=== PATIENT | female | born 1965 | race African-American/Black ===

== ENCOUNTER 2021-08-18 11:40 | Inpatient (IN) | payer OTHER ==
[2021-08-18 13:08] VITALS: BMI 32.8
[2021-08-18] MEDS ORDERED: MAGNESIUM HYDROX 2400MG/30ML ORAL SUSPENSION 30 ML CUP PO PRN (14:04)
[2021-08-18] MEDS ORDERED: BISMUTH SUBSALICYLATE 524 MG/30 ML PO PRN (14:04)
[2021-08-18] MEDS ORDERED: DICYCLOMINE HCL 10 MG CAPSULE PO PRN (14:04)
[2021-08-18] MEDS ORDERED: MAG HYDROX/AL HYDROX/SIMETH 30 ML UNIT-DOSE CUP PO PRN (14:04)
[2021-08-18] MEDS ORDERED: IBUPROFEN 400 MG TABLET (FP) PO PRN (14:04)
[2021-08-18] MEDS ORDERED: LOPERAMIDE HCL 2 MG CAPSULE PO PRN (14:04)
[2021-08-18] MEDS ORDERED: MAGNESIUM CITRATE 300 ML BOTTLE PO PRN (14:04)
[2021-08-18] MEDS ORDERED: ACETAMINOPHEN 325 MG TABLET (FP) PO PRN ×2 (14:04)
[2021-08-18] MEDS ORDERED: NALOXONE HCL 0.4 MG/ML VIAL IM PRN (14:04)
[2021-08-18] MEDS ORDERED: IBUPROFEN 600 MG TABLET (FP) PO PRN (14:04)
[2021-08-18] MEDS ORDERED: methaDONE HCL 10 MG TABLET (FOR DETOX USE ONLY) PO ONE (14:04)
[2021-08-18] MEDS: ALBUTEROL SO4 HFA INHALER IH SCH ×3 (15:45→22:21)
[2021-08-18] MEDS: INSULIN SLIDING SCALE (NOVOLOG) 1 VIAL SQ SCH (17:29)
[2021-08-18] MEDS: metFORMIN HCL 500 MG TABLET (FP) PO SCH (17:30)
[2021-08-18] MEDS: THIAMINE HCL 100 MG TABLET (FP) PO SCH (22:21)
[2021-08-18] MEDS: MELATONIN 5 MG TABLETS PO SCH (22:21)
[2021-08-18] MEDS: METHOCARBAMOL 500 MG TABLET PO PRN (22:21)
[2021-08-19] MEDS: ALBUTEROL SO4 HFA INHALER IH SCH ×6 (02:20→22:07)
[2021-08-19] MEDS ORDERED: INSULIN SLIDING SCALE (NOVOLOG) 1 VIAL SQ ONE (06:25)
[2021-08-19] MEDS: metFORMIN HCL 500 MG TABLET (FP) PO SCH ×2 (06:26→17:37)
[2021-08-19] MEDS: INSULIN SLIDING SCALE (NOVOLOG) 1 VIAL SQ SCH ×3 (06:26→17:41)
[2021-08-19] MEDS ORDERED: methaDONE HCL 10 MG TABLET (FOR DETOX USE ONLY) ONE (09:41)
[2021-08-19] MEDS: NICOTINE 7 MG/24 HOURS TOPICAL PATCH TD SCH (10:28)
[2021-08-19] MEDS: PRENATAL VITAMINS W/ FOLIC ACID TABLET (FP) PO SCH (10:30)
[2021-08-19] MEDS: cloNIDine HCL 0.1 MG TABLET PO PRN ×3 (10:30→22:06)
[2021-08-19] MEDS: METHOCARBAMOL 500 MG TABLET PO PRN (10:30)
[2021-08-19 11:55] LABS: HEMATOCRIT 37.5 % (32.4-45.2); HEMOGLOBIN 12.9 GM/dL (10.7-15.3); MCH 32.1 pg (25.7-33.7); MCHC 34.3 g/dl (32.0-36.0); MEAN CELL VOLUME 93.7 fl (80-96); MEAN PLT VOLUME 9.7 fl (7.5-11.1); PLATELET COUNT 182 10^3/uL (134-434); RBC 4.01 M/mm3 (3.60-5.2); RDW 13.5 % (11.6-15.6); WHITE BLOOD COUNT 6.4 K/mm3 (4.0-10.0)
[2021-08-19 12:18] LABS: CALCIUM 8.8 mg/dL (8.5-10.1)
[2021-08-19 12:19] LABS: ALBUMIN 3.6 g/dl (3.4-5.0); BILIRUBIN,TOTAL 0.3 mg/dL (0.2-1)
[2021-08-19 12:21] LABS: TOT PROT 6.5 g/dl (6.4-8.2)
[2021-08-19 12:22] LABS: CREATININE 1.1 mg/dL (0.55-1.3)
[2021-08-19] MEDS ORDERED: INSULIN SLIDING SCALE (NOVOLOG) 1 VIAL SQ SCH (16:30)
[2021-08-19] MEDS: NICOTINE 10 MG CARTRIDGE (INHALER) IH PRN (19:17)
[2021-08-19] MEDS: MELATONIN 5 MG TABLETS PO SCH (22:06)
[2021-08-19] MEDS: THIAMINE HCL 100 MG TABLET (FP) PO SCH (22:06)
[2021-08-19] MEDS: traZODone HCL 50 MG TABLET (FP) PO SCH (22:06)
[2021-08-20] MEDS: ALBUTEROL SO4 HFA INHALER IH SCH ×6 (02:45→22:15)
[2021-08-20] MEDS: cloNIDine HCL 0.1 MG TABLET PO PRN (06:09)
[2021-08-20] MEDS: metFORMIN HCL 500 MG TABLET (FP) PO SCH ×2 (06:10→18:31)
[2021-08-20] MEDS: INSULIN SLIDING SCALE (NOVOLOG) 1 VIAL SQ SCH ×3 (06:10→18:31)
[2021-08-20] MEDS ORDERED: methaDONE HCL 10 MG TABLET (FOR DETOX USE ONLY) PO ONE (10:00)
[2021-08-20] MEDS: PRENATAL VITAMINS W/ FOLIC ACID TABLET (FP) PO SCH (10:22)
[2021-08-20] MEDS: NICOTINE 7 MG/24 HOURS TOPICAL PATCH TD SCH (10:22)
[2021-08-20] MEDS ORDERED: ONDANSETRON *ODT* 4 MG TABLET SL ONE (10:56)
[2021-08-20] MEDS: NICOTINE 10 MG CARTRIDGE (INHALER) IH PRN (20:59)
[2021-08-20] MEDS: THIAMINE HCL 100 MG TABLET (FP) PO SCH (22:15)
[2021-08-20] MEDS: traZODone HCL 50 MG TABLET (FP) PO SCH (22:15)
[2021-08-20] MEDS: MELATONIN 5 MG TABLETS PO SCH (22:15)
[2021-08-21] MEDS: ALBUTEROL SO4 HFA INHALER IH SCH ×6 (02:45→22:39)
[2021-08-21] MEDS: metFORMIN HCL 500 MG TABLET (FP) PO SCH ×2 (06:00→18:19)
[2021-08-21] MEDS: INSULIN SLIDING SCALE (NOVOLOG) 1 VIAL SQ SCH ×5 (06:01→18:25)
[2021-08-21] MEDS ORDERED: methaDONE HCL 10 MG TABLET (FOR DETOX USE ONLY) ONE (09:28)
[2021-08-21] MEDS: PRENATAL VITAMINS W/ FOLIC ACID TABLET (FP) PO SCH (10:19)
[2021-08-21] MEDS: NICOTINE 7 MG/24 HOURS TOPICAL PATCH TD SCH (10:19)
[2021-08-21] MEDS: CLOTRIMAZOLE 1% CREAM TP SCH ×2 (14:53→22:41)
[2021-08-21] MEDS: METHOCARBAMOL 500 MG TABLET PO PRN (18:22)
[2021-08-21] MEDS: MELATONIN 5 MG TABLETS PO SCH (22:40)
[2021-08-21] MEDS: THIAMINE HCL 100 MG TABLET (FP) PO SCH (22:40)
[2021-08-21] MEDS: traZODone HCL 50 MG TABLET (FP) PO SCH (22:40)
[2021-08-22] MEDS: ALBUTEROL SO4 HFA INHALER IH SCH ×6 (03:04→22:04)
[2021-08-22] MEDS: metFORMIN HCL 500 MG TABLET (FP) PO SCH ×2 (06:03→17:57)
[2021-08-22] MEDS: INSULIN SLIDING SCALE (NOVOLOG) 1 VIAL SQ SCH ×3 (06:03→18:01)
[2021-08-22] MEDS ORDERED: methaDONE HCL 10 MG TABLET (FOR DETOX USE ONLY) PO ONE (10:00)
[2021-08-22] MEDS: PRENATAL VITAMINS W/ FOLIC ACID TABLET (FP) PO SCH (10:38)
[2021-08-22] MEDS: NICOTINE 7 MG/24 HOURS TOPICAL PATCH TD SCH (10:38)
[2021-08-22] MEDS: CLOTRIMAZOLE 1% CREAM TP SCH ×2 (10:38→22:05)
[2021-08-22] MEDS ORDERED: INSULIN SLIDING SCALE (NOVOLOG) 1 VIAL SQ ONE (11:56)
[2021-08-22] MEDS: BENZOCAINE/MENTHOL (CHLORASEPTIC ) LOZENGE MM PRN ×2 (17:45→22:05)
[2021-08-22] MEDS: traZODone HCL 50 MG TABLET (FP) PO SCH (22:05)
[2021-08-22] MEDS: THIAMINE HCL 100 MG TABLET (FP) PO SCH (22:05)
[2021-08-22] MEDS: MELATONIN 5 MG TABLETS PO SCH (22:05)
[2021-08-22] MEDS: METHOCARBAMOL 500 MG TABLET PO PRN (22:07)
[2021-08-23] MEDS: metFORMIN HCL 500 MG TABLET (FP) PO SCH (06:03)
[2021-08-23] MEDS: ALBUTEROL SO4 HFA INHALER IH SCH ×2 (07:24→10:24)
[2021-08-23] MEDS: INSULIN SLIDING SCALE (NOVOLOG) 1 VIAL SQ SCH ×2 (07:24→11:23)
[2021-08-23 09:28] VITALS: BP 137/58; PULSE 55; TEMP 97.8
[2021-08-23] MEDS: PRENATAL VITAMINS W/ FOLIC ACID TABLET (FP) PO SCH (10:24)
[2021-08-23] MEDS: NICOTINE 7 MG/24 HOURS TOPICAL PATCH TD SCH (10:24)
[2021-08-23] MEDS: CLOTRIMAZOLE 1% CREAM TP SCH (10:24)
[2021-08-23] MEDS ORDERED: INSULIN SLIDING SCALE (NOVOLOG) 1 VIAL SQ ONE (11:23)
== END 2021-08-23 13:28 | disposition other institution (70) | DRG 773 ==
LOC: YASAS 11:40 → Y3N 14:42
PROVIDERS: ADMIT Allergy & Immunology; ATTEND Surgery
PROC: HZ2ZZZZ Detoxification Services for Substance Abuse Treatment (ICD-10-PCS; principal; 2021-08-18)
DX: F11.23 Opioid dependence with withdrawal (principal); F14.20 Cocaine dependence, uncomplicated; F12.10 Cannabis abuse, uncomplicated; F17.210 Nicotine dependence, cigarettes, uncomplicated; F19.24 Other psychoactive substance dependence with psychoactive substance-induced mood disorder; I10 Essential (primary) hypertension; E78.5 Hyperlipidemia, unspecified; J41.0 Simple chronic bronchitis; J45.40 Moderate persistent asthma, uncomplicated; E11.9 Type 2 diabetes mellitus without complications; Z79.84 Long term (current) use of oral hypoglycemic drugs; M54.42 Lumbago with sciatica, left side; M54.41 Lumbago with sciatica, right side; G89.29 Other chronic pain; B35.4 Tinea corporis; E66.9 Obesity, unspecified; Z68.32 Body mass index [BMI] 32.0-32.9, adult
CPT/HCPCS: 36415; 80053; 82962; 85027; 86780; 93005; 93010; C9803-CS; J0735; Q0162; U0003; U0005

== ENCOUNTER 2021-08-23 13:35 | Inpatient (IN) | payer OTHER ==
[2021-08-23] MEDS ORDERED: IBUPROFEN 400 MG TABLET (FP) PO PRN (15:01)
[2021-08-23] MEDS ORDERED: LOPERAMIDE HCL 2 MG CAPSULE PO PRN (15:01)
[2021-08-23] MEDS ORDERED: ACETAMINOPHEN 325 MG TABLET (FP) PO PRN (15:01)
[2021-08-23] MEDS ORDERED: guaiFENesin 200 MG/10 ML 10 ML UNIT-DOSE CUPS PO PRN (15:01)
[2021-08-23] MEDS ORDERED: MAG HYDROX/AL HYDROX/SIMETH 30 ML UNIT-DOSE CUP PO PRN (15:01)
[2021-08-23] MEDS ORDERED: P-EPHED 60MG/TRIPROLIDI 2.5MG TABLET PO PRN (15:01)
[2021-08-23] MEDS ORDERED: MAGNESIUM CITRATE 300 ML BOTTLE PO PRN (15:01)
[2021-08-23] MEDS ORDERED: METHOCARBAMOL 500 MG TABLET PO PRN (15:18)
[2021-08-23] MEDS ORDERED: cloNIDine HCL 0.1 MG TABLET PO PRN (15:37)
[2021-08-23] MEDS: metFORMIN HCL 500 MG TABLET (FP) PO SCH (16:28)
[2021-08-23] MEDS: INSULIN SLIDING SCALE (NOVOLOG) 1 VIAL SQ SCH ×2 (16:29→21:21)
[2021-08-23] MEDS ORDERED: INSULIN SLIDING SCALE (NOVOLOG) 1 VIAL SQ SCH (16:30)
[2021-08-23] MEDS: THIAMINE HCL 100 MG TABLET (FP) PO SCH (21:15)
[2021-08-23] MEDS: MELATONIN 5 MG TABLETS PO SCH (21:15)
[2021-08-23] MEDS: traZODone HCL 50 MG TABLET (FP) PO SCH (21:20)
[2021-08-24] MEDS: metFORMIN HCL 500 MG TABLET (FP) PO SCH ×2 (06:28→16:38)
[2021-08-24] MEDS: BENZOCAINE/MENTHOL (CHLORASEPTIC ) LOZENGE MM PRN (06:29)
[2021-08-24] MEDS: INSULIN SLIDING SCALE (NOVOLOG) 1 VIAL SQ SCH ×4 (06:49→21:54)
[2021-08-24] MEDS: NICOTINE 7 MG/24 HOURS TOPICAL PATCH TD SCH (10:44)
[2021-08-24] MEDS: PRENATAL VITAMINS W/ FOLIC ACID TABLET (FP) PO SCH (10:44)
[2021-08-24] MEDS ORDERED: INSULIN (NOVOLOG) ASPART 100 UNITS/ML 10ML VIAL ONE (16:35)
[2021-08-24] MEDS: traZODone HCL 50 MG TABLET (FP) PO SCH (21:36)
[2021-08-24] MEDS: MELATONIN 5 MG TABLETS PO SCH (21:36)
[2021-08-24] MEDS: THIAMINE HCL 100 MG TABLET (FP) PO SCH (21:36)
[2021-08-24] MEDS: hydrOXYzine PAMOATE 25 MG CAPSULE (FP) PO PRN (21:36)
[2021-08-25] MEDS: metFORMIN HCL 500 MG TABLET (FP) PO SCH ×2 (06:33→16:43)
[2021-08-25] MEDS: BENZOCAINE/MENTHOL (CHLORASEPTIC ) LOZENGE MM PRN (06:35)
[2021-08-25] MEDS: INSULIN SLIDING SCALE (NOVOLOG) 1 VIAL SQ SCH ×4 (06:49→21:45)
[2021-08-25] MEDS: PRENATAL VITAMINS W/ FOLIC ACID TABLET (FP) PO SCH (11:06)
[2021-08-25] MEDS: NICOTINE 7 MG/24 HOURS TOPICAL PATCH TD SCH (11:07)
[2021-08-25] MEDS: MAGNESIUM HYDROX 2400MG/30ML ORAL SUSPENSION 30 ML CUP PO PRN (11:09)
[2021-08-25] MEDS ORDERED: INSULIN (NOVOLOG) ASPART 100 UNITS/ML 10ML VIAL ONE (16:39)
[2021-08-25] MEDS: THIAMINE HCL 100 MG TABLET (FP) PO SCH (21:39)
[2021-08-25] MEDS: traZODone HCL 50 MG TABLET (FP) PO SCH (21:39)
[2021-08-25] MEDS: MELATONIN 5 MG TABLETS PO SCH (21:39)
[2021-08-26] MEDS: metFORMIN HCL 500 MG TABLET (FP) PO SCH ×2 (06:27→16:32)
[2021-08-26] MEDS: INSULIN SLIDING SCALE (NOVOLOG) 1 VIAL SQ SCH ×4 (06:27→21:36)
[2021-08-26] MEDS: PRENATAL VITAMINS W/ FOLIC ACID TABLET (FP) PO SCH (10:28)
[2021-08-26] MEDS: NICOTINE 7 MG/24 HOURS TOPICAL PATCH TD SCH (10:28)
[2021-08-26] MEDS: CLOTRIMAZOLE 1% CREAM TP SCH ×2 (13:24→21:34)
[2021-08-26] MEDS ORDERED: INSULIN (NOVOLOG) ASPART 100 UNITS/ML 10ML VIAL ONE (19:09)
[2021-08-26] MEDS: THIAMINE HCL 100 MG TABLET (FP) PO SCH (21:34)
[2021-08-26] MEDS: traZODone HCL 50 MG TABLET (FP) PO SCH (21:34)
[2021-08-26] MEDS: MELATONIN 5 MG TABLETS PO SCH (21:35)
[2021-08-26] MEDS: hydrOXYzine PAMOATE 25 MG CAPSULE (FP) PO PRN (21:37)
[2021-08-27] MEDS: metFORMIN HCL 500 MG TABLET (FP) PO SCH ×2 (06:23→17:31)
[2021-08-27] MEDS: INSULIN SLIDING SCALE (NOVOLOG) 1 VIAL SQ SCH ×3 (06:25→17:10)
[2021-08-27] MEDS: NICOTINE 7 MG/24 HOURS TOPICAL PATCH TD SCH (10:40)
[2021-08-27] MEDS: PRENATAL VITAMINS W/ FOLIC ACID TABLET (FP) PO SCH (10:40)
[2021-08-27] MEDS: ALBUTEROL SO4 HFA INHALER IH PRN (10:50)
[2021-08-27] MEDS: CLOTRIMAZOLE 1% CREAM TP SCH ×2 (11:10→21:54)
[2021-08-27] MEDS: FLUTICASONE/SALMETEROL 100 MCG/50 MCG DISKUS IH SCH (21:37)
[2021-08-27] MEDS: THIAMINE HCL 100 MG TABLET (FP) PO SCH (21:39)
[2021-08-27] MEDS: MELATONIN 5 MG TABLETS PO SCH (21:39)
[2021-08-27] MEDS: hydrOXYzine PAMOATE 25 MG CAPSULE (FP) PO PRN (21:39)
[2021-08-27] MEDS: levETIRAcetam 500 MG TABLET (FP) PO SCH (21:40)
[2021-08-27] MEDS: traZODone HCL 50 MG TABLET (FP) PO SCH (21:41)
[2021-08-28] MEDS: INSULIN SLIDING SCALE (NOVOLOG) 1 VIAL SQ SCH ×2 (06:43→16:33)
[2021-08-28] MEDS: metFORMIN HCL 500 MG TABLET (FP) PO SCH ×2 (06:45→16:30)
[2021-08-28] MEDS: GLIMEPIRIDE 2 MG TABLET PO SCH (08:01)
[2021-08-28] MEDS: FLUTICASONE/SALMETEROL 100 MCG/50 MCG DISKUS IH SCH ×2 (10:21→21:29)
[2021-08-28] MEDS: PRENATAL VITAMINS W/ FOLIC ACID TABLET (FP) PO SCH (10:21)
[2021-08-28] MEDS: ASPIRIN 81 MG CHEWABLE TABLETS PO SCH (10:22)
[2021-08-28] MEDS: NICOTINE 21 MG/24 HOURS TOPICAL PATCH TD SCH (10:22)
[2021-08-28] MEDS: CLOTRIMAZOLE 1% CREAM TP SCH ×2 (10:22→22:48)
[2021-08-28] MEDS: levETIRAcetam 500 MG TABLET (FP) PO SCH ×2 (10:22→21:28)
[2021-08-28] MEDS: NIFEdipine E.R 60 MG TABLET PO SCH (10:38)
[2021-08-28] MEDS ORDERED: INSULIN (NOVOLOG) ASPART 100 UNITS/ML 10ML VIAL ONE (16:29)
[2021-08-28] MEDS: MELATONIN 5 MG TABLETS PO SCH (21:27)
[2021-08-28] MEDS: THIAMINE HCL 100 MG TABLET (FP) PO SCH (21:27)
[2021-08-28] MEDS: traZODone HCL 50 MG TABLET (FP) PO SCH (21:28)
[2021-08-29] MEDS: metFORMIN HCL 500 MG TABLET (FP) PO SCH ×2 (06:50→16:49)
[2021-08-29] MEDS: GLIMEPIRIDE 2 MG TABLET PO SCH (06:50)
[2021-08-29] MEDS: INSULIN SLIDING SCALE (NOVOLOG) 1 VIAL SQ SCH ×2 (06:59→16:50)
[2021-08-29] MEDS: NICOTINE 10 MG CARTRIDGE (INHALER) IH PRN (06:59)
[2021-08-29] MEDS: levETIRAcetam 500 MG TABLET (FP) PO SCH ×2 (10:36→21:37)
[2021-08-29] MEDS: ASPIRIN 81 MG CHEWABLE TABLETS PO SCH (10:36)
[2021-08-29] MEDS: PRENATAL VITAMINS W/ FOLIC ACID TABLET (FP) PO SCH (10:36)
[2021-08-29] MEDS: NIFEdipine E.R 60 MG TABLET PO SCH (10:38)
[2021-08-29] MEDS: FLUTICASONE/SALMETEROL 100 MCG/50 MCG DISKUS IH SCH ×2 (11:02→21:36)
[2021-08-29] MEDS: CLOTRIMAZOLE 1% CREAM TP SCH ×2 (11:03→21:38)
[2021-08-29] MEDS: NICOTINE 21 MG/24 HOURS TOPICAL PATCH TD SCH (11:03)
[2021-08-29] MEDS ORDERED: INSULIN (NOVOLOG) ASPART 100 UNITS/ML 10ML VIAL ONE (16:42)
[2021-08-29] MEDS: THIAMINE HCL 100 MG TABLET (FP) PO SCH (21:37)
[2021-08-29] MEDS: traZODone HCL 50 MG TABLET (FP) PO SCH (21:37)
[2021-08-29] MEDS: MELATONIN 5 MG TABLETS PO SCH (21:38)
[2021-08-29] MEDS: hydrOXYzine PAMOATE 25 MG CAPSULE (FP) PO PRN (21:39)
[2021-08-30] MEDS: GLIMEPIRIDE 2 MG TABLET PO SCH (06:26)
[2021-08-30] MEDS: metFORMIN HCL 500 MG TABLET (FP) PO SCH ×2 (06:26→16:49)
[2021-08-30] MEDS: INSULIN SLIDING SCALE (NOVOLOG) 1 VIAL SQ SCH ×2 (06:27→16:50)
[2021-08-30] MEDS: levETIRAcetam 500 MG TABLET (FP) PO SCH ×2 (10:07→21:45)
[2021-08-30] MEDS: ASPIRIN 81 MG CHEWABLE TABLETS PO SCH (10:08)
[2021-08-30] MEDS: FLUTICASONE/SALMETEROL 100 MCG/50 MCG DISKUS IH SCH ×2 (10:08→21:48)
[2021-08-30] MEDS: NICOTINE 21 MG/24 HOURS TOPICAL PATCH TD SCH (10:08)
[2021-08-30] MEDS: PRENATAL VITAMINS W/ FOLIC ACID TABLET (FP) PO SCH (10:08)
[2021-08-30] MEDS: NIFEdipine E.R 60 MG TABLET PO SCH (10:09)
[2021-08-30] MEDS: CLOTRIMAZOLE 1% CREAM TP SCH ×2 (10:09→21:46)
[2021-08-30] MEDS: BENZOCAINE/MENTHOL (CHLORASEPTIC ) LOZENGE MM PRN (10:10)
[2021-08-30] MEDS: NICOTINE 10 MG CARTRIDGE (INHALER) IH PRN (10:23)
[2021-08-30] MEDS ORDERED: INSULIN (NOVOLOG) ASPART 100 UNITS/ML 10ML VIAL ONE (16:39)
[2021-08-30] MEDS: THIAMINE HCL 100 MG TABLET (FP) PO SCH (21:45)
[2021-08-30] MEDS: hydrOXYzine PAMOATE 25 MG CAPSULE (FP) PO PRN (21:45)
[2021-08-30] MEDS: traZODone HCL 50 MG TABLET (FP) PO SCH (21:45)
[2021-08-30] MEDS: ALBUTEROL SO4 HFA INHALER IH PRN (21:45)
[2021-08-30] MEDS: MELATONIN 5 MG TABLETS PO SCH (21:46)
[2021-08-31] MEDS: GLIMEPIRIDE 2 MG TABLET PO SCH (06:30)
[2021-08-31] MEDS: metFORMIN HCL 500 MG TABLET (FP) PO SCH ×2 (06:31→16:48)
[2021-08-31] MEDS: INSULIN SLIDING SCALE (NOVOLOG) 1 VIAL SQ SCH ×2 (06:31→16:49)
[2021-08-31 07:23] VITALS: RESP 18
[2021-08-31] MEDS: PRENATAL VITAMINS W/ FOLIC ACID TABLET (FP) PO SCH (10:23)
[2021-08-31] MEDS: levETIRAcetam 500 MG TABLET (FP) PO SCH ×2 (10:24→22:15)
[2021-08-31] MEDS: ASPIRIN 81 MG CHEWABLE TABLETS PO SCH (10:25)
[2021-08-31] MEDS: ALBUTEROL SO4 HFA INHALER IH PRN (10:25)
[2021-08-31] MEDS: NICOTINE 21 MG/24 HOURS TOPICAL PATCH TD SCH (10:26)
[2021-08-31] MEDS: NIFEdipine E.R 60 MG TABLET PO SCH (10:27)
[2021-08-31] MEDS: CLOTRIMAZOLE 1% CREAM TP SCH ×2 (10:28→22:16)
[2021-08-31] MEDS: FLUTICASONE/SALMETEROL 100 MCG/50 MCG DISKUS IH SCH ×2 (11:26→22:16)
[2021-08-31] MEDS: MELATONIN 5 MG TABLETS PO SCH (21:38)
[2021-08-31] MEDS: THIAMINE HCL 100 MG TABLET (FP) PO SCH (21:38)
[2021-08-31] MEDS: traZODone HCL 50 MG TABLET (FP) PO SCH (21:38)
[2021-08-31] MEDS: hydrOXYzine PAMOATE 25 MG CAPSULE (FP) PO PRN (21:38)
[2021-09-01] MEDS: GLIMEPIRIDE 2 MG TABLET PO SCH (06:34)
[2021-09-01] MEDS: metFORMIN HCL 500 MG TABLET (FP) PO SCH ×2 (06:34→16:35)
[2021-09-01] MEDS: INSULIN SLIDING SCALE (NOVOLOG) 1 VIAL SQ SCH ×2 (06:35→16:36)
[2021-09-01] MEDS: FLUTICASONE/SALMETEROL 100 MCG/50 MCG DISKUS IH SCH ×2 (10:16→21:57)
[2021-09-01] MEDS: PRENATAL VITAMINS W/ FOLIC ACID TABLET (FP) PO SCH (10:17)
[2021-09-01] MEDS: ASPIRIN 81 MG CHEWABLE TABLETS PO SCH (10:17)
[2021-09-01] MEDS: NICOTINE 21 MG/24 HOURS TOPICAL PATCH TD SCH (10:17)
[2021-09-01] MEDS: ALBUTEROL SO4 HFA INHALER IH PRN (10:18)
[2021-09-01] MEDS: hydrOXYzine PAMOATE 25 MG CAPSULE (FP) PO PRN (10:19)
[2021-09-01] MEDS: levETIRAcetam 500 MG TABLET (FP) PO SCH ×2 (10:19→21:56)
[2021-09-01] MEDS: NIFEdipine E.R 60 MG TABLET PO SCH (10:20)
[2021-09-01] MEDS: CLOTRIMAZOLE 1% CREAM TP SCH ×2 (10:20→21:58)
[2021-09-01] MEDS: MAGNESIUM HYDROX 2400MG/30ML ORAL SUSPENSION 30 ML CUP PO PRN (14:54)
[2021-09-01] MEDS ORDERED: INSULIN (NOVOLOG) ASPART 100 UNITS/ML 10ML VIAL ONE (16:30)
[2021-09-01] MEDS: MELATONIN 5 MG TABLETS PO SCH (21:56)
[2021-09-01] MEDS: THIAMINE HCL 100 MG TABLET (FP) PO SCH (21:56)
[2021-09-01] MEDS: traZODone HCL 50 MG TABLET (FP) PO SCH (21:56)
[2021-09-02] MEDS: GLIMEPIRIDE 2 MG TABLET PO SCH (06:40)
[2021-09-02] MEDS: metFORMIN HCL 500 MG TABLET (FP) PO SCH ×2 (06:40→17:02)
[2021-09-02] MEDS: INSULIN SLIDING SCALE (NOVOLOG) 1 VIAL SQ SCH ×2 (06:41→17:04)
[2021-09-02] MEDS: PRENATAL VITAMINS W/ FOLIC ACID TABLET (FP) PO SCH (10:30)
[2021-09-02] MEDS: NICOTINE 21 MG/24 HOURS TOPICAL PATCH TD SCH (10:30)
[2021-09-02] MEDS: FLUTICASONE/SALMETEROL 100 MCG/50 MCG DISKUS IH SCH ×2 (10:30→21:36)
[2021-09-02] MEDS: ASPIRIN 81 MG CHEWABLE TABLETS PO SCH (10:31)
[2021-09-02] MEDS: NIFEdipine E.R 60 MG TABLET PO SCH (10:32)
[2021-09-02] MEDS: CLOTRIMAZOLE 1% CREAM TP SCH ×2 (10:34→21:38)
[2021-09-02] MEDS: levETIRAcetam 500 MG TABLET (FP) PO SCH ×2 (10:34→21:34)
[2021-09-02] MEDS: NICOTINE 10 MG CARTRIDGE (INHALER) IH PRN (10:35)
[2021-09-02] MEDS ORDERED: INSULIN (NOVOLOG) ASPART 100 UNITS/ML 10ML VIAL ONE (16:53)
[2021-09-02] MEDS: traZODone HCL 50 MG TABLET (FP) PO SCH (21:34)
[2021-09-02] MEDS: MELATONIN 5 MG TABLETS PO SCH (21:34)
[2021-09-02] MEDS: hydrOXYzine PAMOATE 25 MG CAPSULE (FP) PO PRN (21:34)
[2021-09-02] MEDS: THIAMINE HCL 100 MG TABLET (FP) PO SCH (21:34)
[2021-09-02] MEDS: ALBUTEROL SO4 HFA INHALER IH PRN (21:35)
[2021-09-03] MEDS: metFORMIN HCL 500 MG TABLET (FP) PO SCH ×2 (07:15→16:52)
[2021-09-03] MEDS: GLIMEPIRIDE 2 MG TABLET PO SCH (07:18)
[2021-09-03] MEDS: INSULIN SLIDING SCALE (NOVOLOG) 1 VIAL SQ SCH ×2 (07:19→16:52)
[2021-09-03] MEDS: NICOTINE 21 MG/24 HOURS TOPICAL PATCH TD SCH (10:13)
[2021-09-03] MEDS: PRENATAL VITAMINS W/ FOLIC ACID TABLET (FP) PO SCH (10:13)
[2021-09-03] MEDS: NICOTINE 10 MG CARTRIDGE (INHALER) IH PRN (10:13)
[2021-09-03] MEDS: levETIRAcetam 500 MG TABLET (FP) PO SCH ×2 (10:14→21:36)
[2021-09-03] MEDS: FLUTICASONE/SALMETEROL 100 MCG/50 MCG DISKUS IH SCH ×2 (10:14→21:35)
[2021-09-03] MEDS: ASPIRIN 81 MG CHEWABLE TABLETS PO SCH (10:14)
[2021-09-03] MEDS: NIFEdipine E.R 60 MG TABLET PO SCH (10:15)
[2021-09-03] MEDS: CLOTRIMAZOLE 1% CREAM TP SCH ×2 (10:16→21:36)
[2021-09-03 15:15] LABS: PH,URINE 5.5 (5.0-8.0); URINE APPEARANCE CLEAR; URINE BILIRUBIN NEGATIVE (NEGATIVE); URINE COLOR YELLOW; URINE GLUCOSE (UA) NEGATIVE (NEGATIVE); URINE KETONE NEGATIVE (NEGATIVE); URINE LEUK ESTERASE NEGATIVE (NEGATIVE); URINE NITRITE NEGATIVE (NEGATIVE); URINE PROTEIN TRACE (NEGATIVE); URINE UROBILINOGEN 0.2 mg/dL (0.2-1.0)
[2021-09-03] MEDS ORDERED: INSULIN (NOVOLOG) ASPART 100 UNITS/ML 10ML VIAL ONE (16:29)
[2021-09-03] MEDS: traZODone HCL 50 MG TABLET (FP) PO SCH (21:35)
[2021-09-03] MEDS: hydrOXYzine PAMOATE 25 MG CAPSULE (FP) PO PRN (21:36)
[2021-09-03] MEDS: THIAMINE HCL 100 MG TABLET (FP) PO SCH (21:36)
[2021-09-03] MEDS: MELATONIN 5 MG TABLETS PO SCH (21:36)
[2021-09-03] MEDS: ALBUTEROL SO4 HFA INHALER IH PRN (21:38)
[2021-09-04] MEDS: NICOTINE 10 MG CARTRIDGE (INHALER) IH PRN (06:52)
[2021-09-04] MEDS: GLIMEPIRIDE 2 MG TABLET PO SCH (06:53)
[2021-09-04] MEDS: metFORMIN HCL 500 MG TABLET (FP) PO SCH ×2 (06:53→16:41)
[2021-09-04] MEDS: INSULIN SLIDING SCALE (NOVOLOG) 1 VIAL SQ SCH ×2 (06:54→16:42)
[2021-09-04] MEDS: FLUTICASONE/SALMETEROL 100 MCG/50 MCG DISKUS IH SCH ×2 (10:17→21:46)
[2021-09-04] MEDS: levETIRAcetam 500 MG TABLET (FP) PO SCH ×2 (10:18→21:45)
[2021-09-04] MEDS: ASPIRIN 81 MG CHEWABLE TABLETS PO SCH (10:18)
[2021-09-04] MEDS: NICOTINE 21 MG/24 HOURS TOPICAL PATCH TD SCH (10:18)
[2021-09-04] MEDS: NIFEdipine E.R 60 MG TABLET PO SCH (10:18)
[2021-09-04] MEDS: PRENATAL VITAMINS W/ FOLIC ACID TABLET (FP) PO SCH (10:18)
[2021-09-04] MEDS: CLOTRIMAZOLE 1% CREAM TP SCH ×2 (10:20→21:51)
[2021-09-04] MEDS ORDERED: INSULIN (NOVOLOG) ASPART 100 UNITS/ML 10ML VIAL ONE (16:28)
[2021-09-04] MEDS: THIAMINE HCL 100 MG TABLET (FP) PO SCH (21:45)
[2021-09-04] MEDS: traZODone HCL 50 MG TABLET (FP) PO SCH (21:45)
[2021-09-04] MEDS: MELATONIN 5 MG TABLETS PO SCH (21:45)
[2021-09-04] MEDS: hydrOXYzine PAMOATE 25 MG CAPSULE (FP) PO PRN (21:45)
[2021-09-05] MEDS: GLIMEPIRIDE 2 MG TABLET PO SCH (07:06)
[2021-09-05] MEDS: metFORMIN HCL 500 MG TABLET (FP) PO SCH ×2 (07:07→16:21)
[2021-09-05] MEDS: INSULIN SLIDING SCALE (NOVOLOG) 1 VIAL SQ SCH ×2 (07:09→16:24)
[2021-09-05] MEDS: ASPIRIN 81 MG CHEWABLE TABLETS PO SCH (10:18)
[2021-09-05] MEDS: levETIRAcetam 500 MG TABLET (FP) PO SCH ×2 (10:18→21:43)
[2021-09-05] MEDS: PRENATAL VITAMINS W/ FOLIC ACID TABLET (FP) PO SCH (10:18)
[2021-09-05] MEDS: FLUTICASONE/SALMETEROL 100 MCG/50 MCG DISKUS IH SCH ×2 (10:19→21:44)
[2021-09-05] MEDS: NICOTINE 21 MG/24 HOURS TOPICAL PATCH TD SCH (10:19)
[2021-09-05] MEDS: NICOTINE 10 MG CARTRIDGE (INHALER) IH PRN (10:19)
[2021-09-05] MEDS: NIFEdipine E.R 60 MG TABLET PO SCH (10:20)
[2021-09-05] MEDS: CLOTRIMAZOLE 1% CREAM TP SCH ×2 (12:07→21:44)
[2021-09-05] MEDS: THIAMINE HCL 100 MG TABLET (FP) PO SCH (21:43)
[2021-09-05] MEDS: traZODone HCL 50 MG TABLET (FP) PO SCH (21:43)
[2021-09-05] MEDS: hydrOXYzine PAMOATE 25 MG CAPSULE (FP) PO PRN (21:43)
[2021-09-05] MEDS: MELATONIN 5 MG TABLETS PO SCH (21:44)
[2021-09-06] MEDS: INSULIN SLIDING SCALE (NOVOLOG) 1 VIAL SQ SCH (06:36)
[2021-09-06] MEDS: GLIMEPIRIDE 2 MG TABLET PO SCH (06:36)
[2021-09-06] MEDS: metFORMIN HCL 500 MG TABLET (FP) PO SCH (06:36)
[2021-09-06 07:09] VITALS: BP 121/70; PULSE 81; TEMP 97.8
[2021-09-06] MEDS: levETIRAcetam 500 MG TABLET (FP) PO SCH (09:43)
[2021-09-06] MEDS: ASPIRIN 81 MG CHEWABLE TABLETS PO SCH (09:43)
[2021-09-06] MEDS: CLOTRIMAZOLE 1% CREAM TP SCH (09:44)
[2021-09-06] MEDS: NIFEdipine E.R 60 MG TABLET PO SCH (09:46)
[2021-09-06] MEDS: FLUTICASONE/SALMETEROL 100 MCG/50 MCG DISKUS IH SCH (09:46)
[2021-09-06] MEDS: PRENATAL VITAMINS W/ FOLIC ACID TABLET (FP) PO SCH (09:47)
[2021-09-06] MEDS: NICOTINE 21 MG/24 HOURS TOPICAL PATCH TD SCH (09:48)
== END 2021-09-06 10:25 | disposition home or self-care (01) | DRG 772 ==
LOC: YASAS 13:35 → Y5N 13:36
PROVIDERS: ADMIT Allergy & Immunology; ATTEND Psychiatry & Neurology Pain Medicine
PROC: HZ42ZZZ Group Counseling for Substance Abuse Treatment, Cognitive-Behavioral (ICD-10-PCS; principal; 2021-08-23)
DX: F11.20 Opioid dependence, uncomplicated (principal); F14.20 Cocaine dependence, uncomplicated; F17.210 Nicotine dependence, cigarettes, uncomplicated; I10 Essential (primary) hypertension; J45.40 Moderate persistent asthma, uncomplicated; J41.0 Simple chronic bronchitis; E78.2 Mixed hyperlipidemia
CPT/HCPCS: 81003; 82962; 87086; J0735